=== PATIENT | male | born 1990 | race Hispanic/Latino ===

== ENCOUNTER 2022-12-06 18:04 | Emergency (ER) | payer OTHER, SELFPAY ==
[2022-12-06 18:09] VITALS: BP 178/95; PULSE 60; RESP 20; TEMP 36.7; O2SAT 98; BMI 38.7
--- NOTE | 2022-12-06 19:03 | ED_ITS ---
HPI - Eye Problem <Treasure Maciel PA-C - Last Filed: 12/06/22 19:16> General Chief complaint: Eye Problems Stated complaint: left eye Time Seen by Provider: 12/06/22 18:31 Source: patient Mode of arrival: Ambulatory History of Present Illness HPI Narrative: 32-year-old male with no reported past medical history presents to the ED with 1 day of left eye irritation and swelling. Patient states that he was working wi th the battery of his motorcycle which might have had some corrosives. Patient states that he felt some irritation in his left eye and rubbed his left eye with his left hand. Following this, patient felt that his eye felt swollen in the conjunctiva and around. Patient denies any eye pain, eye irritation. Patient does endorse some clear discharge. Patient denies any vision changes. Vision is grossly intact. Patient is wearing glasses today. Patient does wear contacts, last contact use was yesterday. Related Data Previous Rx's Medication Instructions Recorded levofloxacin 1.5 % eye drops See Rx Instructions .Route 12/06/22 .COMPLEX #5 mL Allergies Allergy/AdvReac Type Severity Reaction Status Date / Time No Known Drug Allergies Allergy Verified 12/06/22 18:14 Review of Systems <Treasure Maciel PA-C - Last Filed: 12/06/22 19:16> Constitutional Constitutional: Denies chills, Denies fatigue, Denies fever(s), Denies frequent falls, Denies lethargy and Denies weakness Eyes Eyes: Denies change in vision, Reports eye discharge, Denies irritation and Denies loss of vision Comments: Left eye swelling ENT Ears, Nose, Mouth, and Throat: Denies change in voice, Denies dizziness, Denies neck pain, Denies sore throat and Denies throat swelling Cardiovascular Cardiovascular: Denies chest pain, Denies irregular heart rhythm, Denies lightheadedness, Denies palpitations, Denies dyspnea, Denies dyspnea on exertion and Denies orthopnea Respiratory Respiratory: Denies cough, Denies dyspnea, Denies dyspnea on exertion and Denies wheezing Gastrointestinal Gastrointestinal: Denies abdominal pain, Denies change in bowel habits, Denies diarrhea, Denies nausea and Denies vomiting Musculoskeletal Musculoskeletal: Denies neck pain and Denies numbness Integumentary/Breasts Skin/Breast: Denies pruritus, Denies erythema, Denies rash and Denies wounds Neurologic Neurologic: Denies behavioral changes, Denies confusion, Denies dizziness, Denies frequent falls, Denies loss of vision, Denies numbness and Denies weakness Psychiatric Psychiatric: Denies anxiety, Denies behavioral changes, Denies confusion, Denies depression, Denies homicidal ideation and Denies suicidal ideation Endocrine Endocrine: Denies fatigue, Denies flushing and Denies palpitations Hematologic/Lymphatic Hematologic/Lymphatic: Denies easy bruising Allergic/Immunologic Allergic/Immunologic: Denies urticaria, Denies throat swelling and Denies wheezing Patient History <Treasure Maciel PA-C - Last Filed: 12/06/22 19:16> Social History Smoking Status: Never smoker Smoking Status: Never smoker alcohol intake frequency: 0-2 drinks per day Substance Use Type: does not use Exam <Treasure Maciel PA-C - Last Filed: 12/06/22 19:16> Narrative Exam Narrative: Const General:?cooperative, healthy appearing and comfortable [facility] Head:?normal to inspection Ears:?hearing grossly normal bilaterally Nose:?external nose normal Face and sinus:?normal facial exam and sinuses nontender Mouth:?oral mucosae normal Throat:?posterior oropharynx normal Eyes General:? Left conjunctiva with chemosis, there is conjunctival injection. There is some purulent discharge noted at the medial canthus. There is a conjunctival abrasion in the lateral lower aspect of the conjunctiva. PH is normal. Vision is grossly normal. Neck Neck:?normal visual inspection and no lymphadenopathy noted Resp Effort & Inspection:?normal respiratory effort Auscultation:?clear to auscultation bilaterally Cardio Rate:?regular rate Rhythm:?regular rhythm Neuro General:?patient alert, patient awake and patient oriented x3 Initial Vital Signs Initial Vital Signs: Vital Signs Temperature 98.1 F 12/06/22 18:09 Pulse Rate 60 12/06/22 18:09 Respiratory Rate 20 12/06/22 18:09 Blood Pressure 178/95 H 12/06/22 18:09 Pulse Oximetry 98 12/06/22 18:09 Oxygen Delivery Method Room Air 12/06/22 18:09 <Nabor Laguerre DO - Last Filed: 12/06/22 22:09> Initial Vital Signs Initial Vital Signs: Vital Signs Temperature 98.1 F 12/06/22 18:09 Pulse Rate 60 12/06/22 18:09 Respiratory Rate 20 12/06/22 18:09 Blood Pressure 178/95 H 12/06/22 18:09 Pulse Oximetry 98 12/06/22 18:09 Oxygen Delivery Method Room Air 12/06/22 18:09 Course <Treasure Maciel PA-C - Last Filed: 12/06/22 19:16> Orders Ordered: Discontinued Medications Diphtheria/Tetanus/Acell Pertussis (Tet,Diph,Pertuss(Acell),Vac/Pf 0.5 Ml Syringe) 0.5 ml IM .ONCE ONE Stop: 12/06/22 18:20 Last Admin: 12/06/22 18:21 Dose: Not Given Documented By: OW Erythromycin (Erythromycin Ophth 1 Gm Oint) 1 applic EYE-LEFT NOW ONE Stop: 12/06/22 18:53 Last Admin: 12/06/22 19:05 Dose: 1 applic Documented By: KF Proparacaine HCl (Proparacaine 0.5% Ophth Rina) 1 drops EYE-BOTH NOW ONE Stop: 12/06/22 18:32 Last Admin: 12/06/22 19:05 Dose: 1 drop Documented By: KF Vital Signs Vital signs: Vital Signs - 8 hr 12/06/22 18:09 Temperature 98.1 F Pulse Rate 60 Respiratory Rate 20 Blood Pressure 178/95 H Pulse Oximetry 98 Oxygen Delivery Method Room Air <Nabor Laguerre DO - Last Filed: 12/06/22 22:09> Orders Ordered: Discontinued Medications Diphtheria/Tetanus/Acell Pertussis (Tet,Diph,Pertuss(Acell),Vac/Pf 0.5 Ml Syringe) 0.5 ml IM .ONCE ONE Stop: 12/06/22 18:20 Last Admin: 12/06/22 18:21 Dose: Not Given Documented By: OW Erythromycin (Erythromycin Ophth 1 Gm Oint) 1 applic EYE-LEFT NOW ONE Stop: 12/06/22 18:53 Last Admin: 12/06/22 19:05 Dose: 1 applic Documented By: KF Proparacaine HCl (Proparacaine 0.5% Ophth Rina) 1 drops EYE-BOTH NOW ONE Stop: 12/06/22 18:32 Last Admin: 12/06/22 19:05 Dose: 1 drop Documented By: KF Vital Signs Vital signs: Vital Signs - 8 hr 12/06/22 18:09 Temperature 98.1 F Pulse Rate 60 Respiratory Rate 20 Blood Pressure 178/95 H Pulse Oximetry 98 Oxygen Delivery Method Room Air MDM - Eye Problem <Treasure Maciel PA-C - Last Filed: 12/06/22 19:16> MDM Narrative Medical decision making narrative: 32-year-old male with no reported past medical history presents to the ED with 1 day of left eye irritation and swelling. Concern for caustic keratoconjunctivitis versus conjunctival abrasion versus bacterial conjunctivitis versus other. Fluorescein exam was positive for a conjunctival abrasion to the lower lateral area of the left conjunctiva. No gross foreign objects noted on exam. PH was normal. There is also some purulent discharge from the medial canthus. There is some chemosis of the left lateral conjunctiva. Patient could possibly have had some caustic keratoconjunctivitis along with a bacterial conjunctivitis. Patient prescribed antibiotic drops. Recommend follow-up with hip hop dancer as soon as possible. ED return precautions discussed with patient. Patient verbalized understanding. Medical records reviewed: Yes Discharge Plan Departure Patient Disposition: Home Clinical Impression: Bacterial conjunctivitis, Chemosis of left conjunctiva Abrasion of conjunctiva Qualifiers: Encounter type: initial encounter Laterality: left Qualified Code(s): S05.02XA - Injury of conjunctiva and corneal abrasion without foreign body, left eye, initial encounter Instructions: DI for Conjunctivitis, DI for Chemical Eye Burn Activity Restrictions/Additional Instructions: You were evaluated in the ED today for left eye irritation and swelling. It is likely that you might have had a mild chemical irritation of your eye as well as bacterial conjunctivitis. It appears you also have a small corneal abrasion which you have had for a long time. You were being prescribed antibiotic eyedrops to use for the next 7 days. Please use those as prescribed. Please also follow-up with an hip hop dancer as soon as possible. Return to the ED if you have worsening symptoms, eye pain, visual changes. Prescriptions: New levofloxacin 1.5 % drops See Rx Instructions .ROUTE .COMPLEX Qty: 5 0RF Rx Instructions: 2 drops into left eye every 2 hours for 2 days, then every 6 hours for 5 days Stand Alone Forms: Patient Portal/API ED Sign-out <Nabor Laguerre DO - Last Filed: 12/06/22 22:09> Cosign ED Attending Cosignature Attestation: Dr Laguerre: I did evaluate the patient with the APC. Patient did have chemosis. Potentially a small corneal abrasion. He does wear contact lenses but does not have 1 now. The plan will be is to place him on antibiotics. We will cover him with a fluoroquinolone. I agree with the above history and physical.
[2022-12-06] MEDS: PROPARACAINE 0.5% OPHTH SOL 1 DROPS EYE-BOTH (19:05)
[2022-12-06] MEDS: ERYTHROMYCIN OPHTH 1 GM OINT 1 APPLIC EYE-LEFT (19:05)
== END 2022-12-06 19:07 | disposition home or self-care (01) ==
PROVIDERS: Emergency Provider Student in an Organized Health Care Education/Training Program
DX: S05.00XA Injury of conjunctiva and corneal abrasion without foreign body, unspecified eye, initial encounter (principal); H11.422 Conjunctival edema, left eye; H10.9 Unspecified conjunctivitis
CPT/HCPCS: 99282

== ENCOUNTER → 2023-12-09 08:38 | Outpatient (CLI) | payer OTHER, SELFPAY ==
[2023-12-09 09:58] LABS: Semen Sperm Prescence Post-Vas Absent (ABSENT)
== END ==
PROVIDERS: Referring Provider Specialist; Visit Provider Specialist
DX: Z98.52 Vasectomy status (principal)
CPT/HCPCS: 89321